=== PATIENT | female | born 1985 | race Hispanic/Latino ===

== ENCOUNTER 2018-12-22 10:35 | Emergency (ER) | payer OTHER ==
--- NOTE | 2018-12-22 11:27 | RAD ---
PORTABLE CHEST 1 VIEW: Date: 12/22/18 Time: 1102 hours HISTORY: Chest pain. FINDINGS: The heart size is normal. The lungs are expanded with focal areas of consolidation, pneumothorax, or pleural effusions. IMPRESSION: No radiographic evidence of acute cardiopulmonary process. POS: [facility]
== END 2018-12-22 11:30 | disposition home or self-care (01) ==
LOC: NAV ERS 10:35
DX: F43.9 Reaction to severe stress, unspecified (principal); J06.9 Acute upper respiratory infection, unspecified; F41.9 Anxiety disorder, unspecified
CPT/HCPCS: 71045

== ENCOUNTER 2019-08-01 22:02 | Emergency (ER) | payer OTHER ==
[2019-08-01] MEDS ORDERED: diphenhydrAMINE 12.5 MG/5 ML UDCUP ONE ×2 (22:29→22:30)
== END 2019-08-01 23:15 | disposition home or self-care (01) ==
LOC: NAV ERS 22:02 → EDBD 22:02 → NAV ERS 23:15
DX: L50.0 Allergic urticaria (principal)
CPT/HCPCS: 99283; Q0163

== ENCOUNTER 2020-07-12 00:42 | Emergency (ER) | payer OTHER ==
[2020-07-12] MEDS ORDERED: diphenhydrAMINE 50 MG/ML VIAL ONE (01:10)
[2020-07-12] MEDS ORDERED: prednisoLONE 15 MG/5 ML UDCUP ONE (01:10)
== END 2020-07-12 01:44 | disposition home or self-care (01) ==
LOC: NAV ERS 00:42
DX: L50.9 Urticaria, unspecified (principal)
CPT/HCPCS: 96372; 99282; J1200; J7510

== ENCOUNTER 2022-11-16 14:04 | Emergency (ER) | payer OTHER ==
[2022-11-16] MEDS ORDERED: Dexamethasone 20 MG/5 ML VIAL ONE (15:03)
== END 2022-11-16 15:10 | disposition home or self-care (01) ==
LOC: NAV ERS 14:04
DX: S80.862A Insect bite (nonvenomous), left lower leg, initial encounter (principal); S50.862A Insect bite (nonvenomous) of left forearm, initial encounter; W57.XXXA Bitten or stung by nonvenomous insect and other nonvenomous arthropods, initial encounter
CPT/HCPCS: 99282; J1100